=== PATIENT | female | born 1965 | race Caucasian/White ===

== ENCOUNTER 2017-04-23 18:34 | Emergency (ER) | payer MEDICAID ==
[~2017-04-23] VITALS: Ht 157.5 cm; Wt 92.9 kg
[~2017-04-23 18:34] MED LIST: CITA20TA5 PO; HYDR50TA13 PO; LORA1TAB PO; PRAV40TA2 PO; RANI150C PO; TRAZ150T62 PO
[2017-04-23 18:48] VITALS: BP 145/86
[2017-04-23 19:55] LABS: RAPID INFLUENZA A Negative (Negative); RAPID INFLUENZA B Negative (Negative)
== END 2017-04-23 20:13 | disposition home or self-care (01) ==
LOC: ED 20:07
DX: B34.9 Viral infection, unspecified (principal); Z88.0 Allergy status to penicillin
CPT/HCPCS: 71046; 87081; 87400; 87880; 99285

== ENCOUNTER 2017-11-08 14:11 | Emergency (ER) | payer MEDICAID ==
[~2017-11-08] VITALS: Ht 167.6 cm; Wt 98.0 kg
[~2017-11-08 14:11] MED LIST changes: -CITA20TA5 PO; +CITA20TA6 PO
[2017-11-08] MEDS ORDERED: CYCLOBENZAPRINE 10 MG TABLET ONE (14:55)
[2017-11-08] MEDS ORDERED: KETOROLAC 30 MG/1 ML ONE (14:55)
[2017-11-08] MEDS ORDERED: KETOROLAC 30 MG/1 ML IM ONE (15:00)
[2017-11-08] MEDS ORDERED: CYCLOBENZAPRINE 10 MG TABLET PO SCH (15:00)
[2017-11-08 15:04] LABS: BASOPHILS # (AUTO) 0.03 x10^3/uL (0-0.1); BASOPHILS % (AUTO) 0 % (0-1); EOSINOPHILS # (AUTO) 0.07 x10^3/uL (0-0.4); EOSINOPHILS % (AUTO) 1 % (1-7); LYMPHOCYTES # (AUTO) 1.83 x10^3/uL (1-3.4); LYMPHOCYTES % (AUTO) 26 % (22-44); MD NO; MEAN CORPUSCULAR HGB CONC 33.9 g/dL (32.4-35.8); MEAN CORPUSCULAR VOLUME 85.5 fL (80-100); MEAN PLATELET VOLUME 8.4 fL (7.4-10.4); MONOCYTES # (AUTO) 0.47 x10^3/uL (0.2-0.8); MONOCYTES % (AUTO) 7 % (2-9); NEUTROPHILS # (AUTO) 4.74 x10^3/uL (1.8-6.8); NEUTROPHILS % (AUTO) 66 % (42-75); PLATELET COUNT 287 x10^3/uL (130-400); RED BLOOD COUNT 4.82 x10^6/uL (3.82-5.3); RED CELL DISTRIBUTION WIDTH 13.3 % (9.6-15.2)
[2017-11-08 15:13] LABS: ALBUMIN 3.8 g/dL (3.4-5.0); ANION GAP 6 mmol/L (5-15); CALCIUM 9.2 mg/dL (8.5-10.1); CHLORIDE 105 mmol/L (98-107)
[2017-11-08 15:16] LABS: TROPONIN I < 0.015 ng/mL (0.000-0.045)
[2017-11-08 15:35] VITALS: BP 145/96
== END 2017-11-08 18:25 | disposition home or self-care (01) ==
LOC: ED 16:12
DX: R07.89 Other chest pain (principal); M79.7 Fibromyalgia; M54.2 Cervicalgia; M54.6 Pain in thoracic spine; R06.02 Shortness of breath; Z90.710 Acquired absence of both cervix and uterus
CPT/HCPCS: 36415; 71045; 80048; 82040; 84484; 85025; 99285

== ENCOUNTER 2019-02-19 16:42 | Emergency (ER) | payer MEDICAID ==
[~2019-02-19] VITALS: Ht 157.5 cm; Wt 93.2 kg
[2019-02-19 16:43] VITALS: BP 133/83
== END 2019-02-19 18:07 | disposition home or self-care (01) ==
LOC: ED 18:01
DX: S63.634A Sprain of interphalangeal joint of right ring finger, initial encounter (principal); X50.1XXA Overexertion from prolonged static or awkward postures, initial encounter; Y93.89 Activity, other specified; Y92.009 Unspecified place in unspecified non-institutional (private) residence as the place of occurrence of the external cause; Y99.8 Other external cause status; Z90.710 Acquired absence of both cervix and uterus
CPT/HCPCS: 29130; 99283

== ENCOUNTER 2019-08-07 18:07 | Emergency (ER) | payer MEDICAID ==
[~2019-08-07] VITALS: Ht 157.5 cm; Wt 95.5 kg
[~2019-08-07 18:07] MED LIST changes: -HYDR50TA13 PO; +HYDR50TA99 PO
--- NOTE | 2019-08-07 18:41 | NUR ---
REPORT RECEIVED FROM YARY GREEN AND ASSUMED CARE OF PT.
[2019-08-07] MEDS ORDERED: IBUPROFEN 800 MG TABLET PO ONE (19:00)
[2019-08-07 19:10] LABS: BASOPHILS # (AUTO) 0.02 x10^3/uL (0-0.1); BASOPHILS % (AUTO) 0 % (0-1); EOSINOPHILS # (AUTO) 0.07 x10^3/uL (0-0.4); EOSINOPHILS % (AUTO) 1 % (1-7); LYMPHOCYTES # (AUTO) 1.92 x10^3/uL (1-3.4); LYMPHOCYTES % (AUTO) 26 % (22-44); MD NO; MEAN CORPUSCULAR HEMOGLOBIN 29.2 pg (27.0-34.8); MEAN CORPUSCULAR HGB CONC 33.6 g/dL (32.4-35.8); MEAN PLATELET VOLUME 8.1 fL (7.4-10.4); MONOCYTES # (AUTO) 0.52 x10^3/uL (0.2-0.8); MONOCYTES % (AUTO) 7 % (2-9); NEUTROPHILS # (AUTO) 4.99 x10^3/uL (1.8-6.8); NEUTROPHILS % (AUTO) 66 % (42-75); PLATELET COUNT 275 x10^3/uL (130-400); RED CELL DISTRIBUTION WIDTH 13.2 % (9.6-15.2)
[2019-08-07 19:22] LABS: ALBUMIN 3.7 g/dL (3.4-5.0); ANION GAP 4 mmol/L (5-15); CALCIUM 9.2 mg/dL (8.5-10.1); CHLORIDE 106 mmol/L (98-107); CREATININE 1.15 mg/dL (0.55-1.02)
--- NOTE | 2019-08-07 19:22 | NUR ---
PT MEDICATED ORDERED FOR HEADACHE. PT REQUESTED TO ONLY TAKE 600MG OF IBUPROFEN INSTEAD OF 800MG. PT AO X 4. SKIN PWD. RESP EVEN AND UNLABORED. NO ACUTE DISTRESS NOTED. PT STEADY UPON AMBULATION TO RESTROOM.
[2019-08-07 19:26] LABS: TROPONIN I < 0.015 ng/mL (0.000-0.045)
[2019-08-07 20:35] VITALS: BP 154/79
== END 2019-08-07 20:44 | disposition home or self-care (01) ==
LOC: ED 19:38
DX: G44.219 Episodic tension-type headache, not intractable (principal); R07.89 Other chest pain; L08.9 Local infection of the skin and subcutaneous tissue, unspecified; R94.31 Abnormal electrocardiogram [ECG] [EKG]; Z90.710 Acquired absence of both cervix and uterus
CPT/HCPCS: 36415; 71045; 80048; 82040; 84484; 85025; 93005; 99285

== ENCOUNTER 2019-10-27 20:36 | Emergency (ER) | payer MEDICAID ==
[~2019-10-27] VITALS: Ht 157.5 cm; Wt 100.0 kg
[2019-10-27 20:57] VITALS: BP 139/69
--- NOTE | 2019-10-27 23:12 | NUR ---
PT TO ROOM FROM LOBBY
[2019-10-28 00:18] LABS: BASOPHILS # (AUTO) 0.03 x10^3/uL (0-0.1); BASOPHILS % (AUTO) 0 % (0-1); EOSINOPHILS # (AUTO) 0.15 x10^3/uL (0-0.4); EOSINOPHILS % (AUTO) 2 % (1-7); LYMPHOCYTES # (AUTO) 1.83 x10^3/uL (1-3.4); LYMPHOCYTES % (AUTO) 29 % (22-44); MD NO; MEAN CORPUSCULAR HEMOGLOBIN 28.9 pg (27.0-34.8); MEAN CORPUSCULAR HGB CONC 33.7 g/dL (32.4-35.8); MEAN CORPUSCULAR VOLUME 85.6 fL (80-100); MEAN PLATELET VOLUME 8.4 fL (7.4-10.4); MONOCYTES # (AUTO) 0.39 x10^3/uL (0.2-0.8); MONOCYTES % (AUTO) 6 % (2-9); NEUTROPHILS # (AUTO) 3.88 x10^3/uL (1.8-6.8); NEUTROPHILS % (AUTO) 62 % (42-75); PLATELET COUNT 237 x10^3/uL (130-400); RED CELL DISTRIBUTION WIDTH 13.6 % (9.6-15.2)
[2019-10-28 00:28] LABS: ALANINE AMINOTRANSFERASE 22 U/L (12-78); ALBUMIN 3.4 g/dL (3.4-5.0); ANION GAP 4 mmol/L (5-15); CALCIUM 8.3 mg/dL (8.5-10.1); CHLORIDE 112 mmol/L (98-107); CREATININE 0.98 mg/dL (0.55-1.02)
[2019-10-28 00:30] LABS: ALKALINE PHOSPHATASE 111 U/L (45-117); BILIRUBIN,TOTAL 0.5 mg/dL (0.2-1.0); TOTAL PROTEIN 6.9 g/dL (6.4-8.2)
== END 2019-10-28 01:24 | disposition home or self-care (01) ==
LOC: ED 23:35
DX: L03.311 Cellulitis of abdominal wall (principal); T63.441A Toxic effect of venom of bees, accidental (unintentional), initial encounter; E78.00 Pure hypercholesterolemia, unspecified; Z90.710 Acquired absence of both cervix and uterus; Z87.891 Personal history of nicotine dependence; Y92.89 Other specified places as the place of occurrence of the external cause
CPT/HCPCS: 36415; 80053; 85025; 99283

== ENCOUNTER 2020-05-02 08:02 | Emergency (ER) | payer MEDICAID ==
[~2020-05-02] VITALS: Ht 157.5 cm; Wt 95.5 kg
--- NOTE | 2020-05-02 08:25 | NUR ---
PT BIB AMBULANCE FOR N/V WITH SMALL AMOUNT OF BRIGHT RED/BLACK EMEISIS WITH RECENT DIAGNOSIS OF ULCER FROM EGD DUE TO ESOPHAGEAL DYSPHAGIA PER PREPORT PT HAD WITH HER. PT REPORTS BLACK STOOL ONE WEEK BUT NONE SINCE. SHE DOES TAKE MOTRIN BUT REPORTS NOT TAKING IN 2 WEEKS. PT ON MONITOR. REPORT TO PEG PRINGLE.
[2020-05-02] MEDS ORDERED: FAMOTIDINE 20 MG/2 ML IV ONE (09:00)
[2020-05-02] MEDS ORDERED: MAALOX/HYOSCYAMINE/LIDOCAINE 45 ML BTL PO ONE (09:00)
[2020-05-02] MEDS ORDERED: SODIUM CHLORIDE FLUSH 10ML SYR IVF ONE (09:00)
[2020-05-02] MEDS ORDERED: ONDANSETRON 2MG/ML, 2ML IVPush ONE (09:00)
[2020-05-02] MEDS ORDERED: ONDANSETRON 2MG/ML, 2ML ONE (09:05)
[2020-05-02] MEDS ORDERED: FAMOTIDINE 20 MG/2 ML ONE (09:06)
[2020-05-02] MEDS ORDERED: MAALOX/HYOSCYAMINE/LIDOCAINE 45 ML BTL ONE (09:06)
[2020-05-02 09:09] LABS: BASOPHILS % (AUTO) 0 % (0-1); EOSINOPHILS % (AUTO) 2 % (1-7); LYMPHOCYTES % (AUTO) 20 % (22-44); MEAN CORPUSCULAR HEMOGLOBIN 28.6 pg (27.0-34.8); MEAN CORPUSCULAR HGB CONC 34.3 g/dL (32.4-35.8); MEAN PLATELET VOLUME 7.9 fL (7.4-10.4); MONOCYTES % (AUTO) 6 % (2-9); NEUTROPHILS % (AUTO) 72 % (42-75); PLATELET COUNT 264 x10^3/uL (130-400); RED CELL DISTRIBUTION WIDTH 13.7 % (9.6-15.2)
--- NOTE | 2020-05-02 09:10 | NUR ---
Pt educated for GI discomfort, PIV started. VS updated.
[2020-05-02 09:11] LABS: MD NO
[2020-05-02 09:23] LABS: ALANINE AMINOTRANSFERASE 21 U/L (12-78); ALBUMIN 3.4 g/dL (3.4-5.0); ANION GAP 6 mmol/L (5-15); CHLORIDE 110 mmol/L (98-107); CREATININE 0.99 mg/dL (0.55-1.02)
[2020-05-02 09:27] LABS: ALKALINE PHOSPHATASE 132 U/L (45-117); BILIRUBIN,TOTAL 0.2 mg/dL (0.2-1.0); TOTAL PROTEIN 7.1 g/dL (6.4-8.2); TROPONIN I < 0.015 ng/mL (0.000-0.045)
--- NOTE | 2020-05-02 10:09 | NUR ---
US complete. Pt able to ambulate to restroom without issue.
[2020-05-02 11:07] VITALS: BP 154/73
== END 2020-05-02 11:22 | disposition home or self-care (01) ==
LOC: ED 10:18
DX: K29.70 Gastritis, unspecified, without bleeding (principal); K21.9 Gastro-esophageal reflux disease without esophagitis
CPT/HCPCS: 36415; 76700; 80053; 83690; 84484; 85025; 86850; 86900; 93005; 96374; 96375; 99285; J2405

== ENCOUNTER → 2020-07-12 | Outpatient (CLI) | payer MEDICAID | END | disposition home or self-care (01) | LOC: RAD 09:55 | PROVIDERS: ATTEND Physician Assistant | DX: K31.84 Gastroparesis (principal); K20.0 Eosinophilic esophagitis; R13.19 Other dysphagia; R68.81 Early satiety | CPT/HCPCS: 78264; A9541 ==

== ENCOUNTER 2020-11-11 13:31 | Emergency (ER) | payer MEDICAID ==
[~2020-11-11] VITALS: Ht 154.9 cm; Wt 101.2 kg
[2020-11-11 13:39] VITALS: BP 161/80
--- NOTE | 2020-11-11 13:51 | NUR ---
PA at bedside for exam.
[2020-11-11] MEDS ORDERED: DIPH,PERTUSS(ACELL),TET VAC/PF 0.5 ML IM-VACC ONE ×2 (13:58→15:00)
[2020-11-11] MEDS ORDERED: BACITRACIN ZINC OINT 500U/GM, 0.9 GM ONE (14:05)
--- NOTE | 2020-11-11 14:05 | NUR ---
TDaP given with aseptic technique and site covered with bandaid per pt request. inorganic chemical technician at bedside to clean small, superficial cut to L index finger now. Bacitracin ointment provided for use.
== END 2020-11-11 14:59 | disposition home or self-care (01) ==
LOC: ED 14:50
DX: S61.211A Laceration without foreign body of left index finger without damage to nail, initial encounter (principal); K21.9 Gastro-esophageal reflux disease without esophagitis; E78.00 Pure hypercholesterolemia, unspecified; X58.XXXA Exposure to other specified factors, initial encounter; Y93.89 Activity, other specified; Y92.009 Unspecified place in unspecified non-institutional (private) residence as the place of occurrence of the external cause; Y99.8 Other external cause status
CPT/HCPCS: 90471; 90715